=== PATIENT | male | born 1990 | race Caucasian/White ===

== ENCOUNTER 2017-04-09 11:13 | Emergency (ER) | payer BC ==
[~2017-04-09] VITALS: Ht 182.9 cm; Wt 86.4 kg
[2017-04-09] MEDS ORDERED: MELOXICAM7.5 MG (11:21)
[2017-04-09] MEDS ORDERED: CITALOPRAM40 MG PO (11:21)
[2017-04-09] MEDS ORDERED: CYCLOBENZ5 MG (11:22)
[2017-04-09] MEDS ORDERED: CEPHALEXIN500 M1 PO (12:01)
[2017-04-09 12:31] VITALS: BP 121/77
== END 2017-04-09 12:37 | disposition home or self-care (01) ==
LOC: ED 11:13
DX: S81.812A Laceration without foreign body, left lower leg, initial encounter (principal); W22.8XXA Striking against or struck by other objects, initial encounter; Y92.89 Other specified places as the place of occurrence of the external cause
CPT/HCPCS: 90715; A4550